=== PATIENT | female | born 1950 | race Caucasian/White ===

== ENCOUNTER → 2017-01-12 | Outpatient (REF) | payer MEDICARE | LOC: M LAB REF 14:05 | PROVIDERS: ATTEND Nurse Practitioner | DX: R76.11 Nonspecific reaction to tuberculin skin test without active tuberculosis (principal) ==

== ENCOUNTER → 2017-07-03 | Outpatient (REF) | payer MEDICARE ==
[2017-07-03 19:08] LABS: INFLUENZA A AMPLIFICATION NEGATIVE (NEGATIVE); INFLUENZA B AMPLIFICATION NEGATIVE (NEGATIVE); RSV AMPLIFICATION NEGATIVE (NEGATIVE)
== END ==
LOC: M LAB REF 18:12
DX: J11.1 Influenza due to unidentified influenza virus with other respiratory manifestations (principal)
CPT/HCPCS: 87631

== ENCOUNTER 2017-09-16 07:41 | Day surgery (SDC) | payer MEDICARE ==
[2017-09-16] MEDS: NS 1,000 ML IV (08:07)
[2017-09-16] MEDS ORDERED: LIDOCAINE 2% INJ 100 MG/5 ML SDV (FOR ANES.) As Ordered (08:43)
[2017-09-16] MEDS ORDERED: PROPOFOL 500 MG/50 ML VIAL As Ordered (08:43)
== END 2017-09-16 09:44 | disposition home or self-care (01) ==
LOC: M OPP 07:41
DX: Z12.11 Encounter for screening for malignant neoplasm of colon (principal); D12.5 Benign neoplasm of sigmoid colon; K57.30 Diverticulosis of large intestine without perforation or abscess without bleeding; K64.8 Other hemorrhoids; I10 Essential (primary) hypertension; E78.5 Hyperlipidemia, unspecified; R60.0 Localized edema; M10.9 Gout, unspecified; E03.9 Hypothyroidism, unspecified; K21.9 Gastro-esophageal reflux disease without esophagitis; Z86.19 Personal history of other infectious and parasitic diseases; M06.9 Rheumatoid arthritis, unspecified; M19.90 Unspecified osteoarthritis, unspecified site; M54.5 Low back pain; I73.00 Raynaud's syndrome without gangrene; M79.7 Fibromyalgia; M81.0 Age-related osteoporosis without current pathological fracture; G47.30 Sleep apnea, unspecified; R06.83 Snoring; R06.02 Shortness of breath; Z79.82 Long term (current) use of aspirin; Z79.899 Other long term (current) drug therapy; Z80.41 Family history of malignant neoplasm of ovary
CPT/HCPCS: 45385

== ENCOUNTER 2021-04-18 15:31 | Emergency (ER) | payer MEDICARE ==
[~2021-04-18] VITALS: Ht 157.5 cm; Wt 106.4 kg
[~2021-04-18 15:31] MED LIST: ACTE400I IV; ALLO100T; AMLO2.5T3; ASPI81TA26 PO; ATEN50TA2; ATOR80TA59; DULO1CAP6; GABA-282; LEVO150T7; MELO7.5T7; OXYB10TA23; PROAAER10; RAMI1CAP26; RANI150T; TYLETAB14 PO
[2021-04-18] MEDS ORDERED: ROLLMIS8 XX (17:32)
[2021-04-18 17:34] VITALS: BP 144/68
== END 2021-04-18 18:21 | disposition home or self-care (01) ==
LOC: M ED 15:31 → EDBD 15:31 → M ED 18:21
DX: S76.302A Unspecified injury of muscle, fascia and tendon of the posterior muscle group at thigh level, left thigh, initial encounter (principal); W01.0XXA Fall on same level from slipping, tripping and stumbling without subsequent striking against object, initial encounter; Y92.009 Unspecified place in unspecified non-institutional (private) residence as the place of occurrence of the external cause; Y93.9 Activity, unspecified; Y99.9 Unspecified external cause status; I10 Essential (primary) hypertension; E03.9 Hypothyroidism, unspecified; Z79.899 Other long term (current) drug therapy; Z79.82 Long term (current) use of aspirin

== ENCOUNTER 2022-02-11 10:55 | Outpatient (CLI) | payer MEDICARE ==
[~2022-02-11] VITALS: Ht 160 cm; Wt 103.6 kg
[~2022-02-11 10:55] MED LIST changes: +ALBUTEROL SULFATE 2.5 MG/0.5 ML INH NEB SOLN INH PRN; +EPINEPHrine INJ 1 MG/ML 1ML AMP IM PRN; +ROLLMIS8 XX; +diphenhydrAMINE 50MG/ML VIAL (J1200) IV PRN; +methylPREDNISolone 125MG 2ML VIAL IV PRN
[2022-02-11 11:27] VITALS: BP 152/87
[2022-02-11] MEDS ORDERED: TIXAGEVIMAB/CILGAVIMAB (EVUSHELD) 150MG-150MG 3ML VIAL (EUA) IM NO SITE ONE (11:30)
== END 2022-02-11 12:19 | disposition home or self-care (01) ==
LOC: M INFU 10:55
PROVIDERS: ATTEND Internal Medicine Rheumatology
DX: M06.09 Rheumatoid arthritis without rheumatoid factor, multiple sites (principal); Z79.899 Other long term (current) drug therapy